=== PATIENT | female | born 1930 | race Caucasian/White ===

== ENCOUNTER 2017-02-12 10:25 | Inpatient (IN) | payer OTHER ==
[~2017-02-12] VITALS: Ht 160 cm; Wt 86.3 kg
[~2017-02-12 10:25] MED LIST: ARTHROTEC 751 TABLET; AZITHROMYCIN250 MG PO; Antivert PO; Arthrotec 75 PO; BESIVANCE 0.6% LEFT EYE; CEFTIN500 MG PO; CELEBREX200 MG PO; CIPRO XR 500 M500 M1 PO; CIPRO250 MG; COSOPT EYE DROPS5 ML LEFT EYE; COSOPT EYE DROPS5 ML RIGHT EYE; COSOPT PF EYE1 EACH RIGHT EYE; COZAAR50 MG PO; Combigan Ophth Soln RIGHT EYE; DICLOFENAC LEFT EYE; DULERA 100 MCG/13 GM IH; DUONEB 2.5-0.5 M3 ML AEROSOL; DUONEB3 ML IH; FERROUS SULFAT325 MG PO; FUROSEMIDE20 MG PO; GLUCOPHAGE500 MG PO; Glucophage PO; Glucosamine/Chondroi PO; HYDROCHLOROTHIA25 MG; HYDROCHLOROTHIA25 MG PO; Hydrodiuril,Oretic,E PO; IRON325 M1 PO; IRON325 MG PO; LASIX20 MG PO; LASIX40 MG PO; LEVOFLOXACIN750 MG PO; LIPITOR40 MG PO; LISINOPRIL5 MG PO; LOPRESSOR25 MG PO; MECLIZINE HCL25 M3 PO; METFORMIN HCL500 MG PO; OMEPRAZOLE20 MG PO; OMEPRAZOLE40 M1 PO; OSTEO BI-FLEX1 EAC1 PO; OSTEO BI-FLEX1 EAC2 PO; Omnicef PO; PREDNISONE10 MG PO; PREDNISONE20 MG PO; PRINIVIL5 MG PO; PROAIR HFA8.5 GM IH; Plavix PO; Pred Forte 1%,Omnipr LEFT EYE; PriLOSEC PO; Proventil,Ventolin H IH; SERTRALINE HCL100 MG PO; SIMVASTATIN80 MG; ST. JOSEPH ASPI81 MG PO; TRIAMCINOLONE A15 GM TP; Theragran-M,Centrum, PO; XALATAN2.5 ML LEFT EYE; ZOLOFT100 MG PO; Zestril,Prinivil PO; Zocor PO; Zoloft PO
[2017-02-12 10:47] LABS: EOSINOPHIL (%) 1.7 % (0-5); EOSINOPHIL COUNT 0.2 K/uL (0-0.3); HEMATOCRIT 27.8 % (36.0-46.0); IMMATURE GRANULOCYTE (%) 0.6 % (0.0-0.7); IMMATURE GRANULOCYTE COUNT 0.1 K/uL; INSTRUMENT ABS NEUTROPHIL CT 8.4 K/uL; LYMPHOCYTE COUNT 0.6 K/uL (1.0-2.8); MCH 27.3 PG (29.0-34.0); MCHC 29.1 G/DL (30.0-36.0); MCV 93.6 FL (83-99); MONOCYTE (%) 6.8 % (3-12); MONOCYTE COUNT 0.7 K/uL (0-0.8); NEUTROPHIL (%) 84.4 % (45-76); NEUTROPHIL COUNT 8.4 K/uL (1.8-6.4); RBC DIS.WIDTH-CV 15.8 % (11.8-14.6); RBC DIS.WIDTH-SD 53.7 % (39-53); RED BLOOD COUNT 2.97 M/uL (3.80-5.20)
[2017-02-12 10:56] LABS: AMYLASE 83 IU/L (1-118); CHLORIDE 109 mEq/L (99-109); POTASSIUM 4.9 mEq/L (3.7-5.4); SODIUM 143 mEq/L (136-147)
[2017-02-12 10:58] LABS: GLUCOSE 123 mg/dL (70-99)
[2017-02-12 10:59] LABS: ANION GAP 6 MEQ/L (2-14)
[2017-02-12 11:01] LABS: SERUM ETHYL ALCOHOL < 10 mg/dL
[2017-02-12 11:02] LABS: GFR ESTIMATE (CALCULATED) 50 mL/min/
[2017-02-12 11:03] LABS: UREA NITROGEN (BUN) 31 mg/dL (9-23)
[2017-02-12 11:05] LABS: LIPASE 71 U/L (1.0-51.0)
[2017-02-12 11:43] LABS: HEMATOLOGY COMMENT 1 SMEAR COMPATIBLE; PLAT.SUFFICIENCY DECREASED; PLATELET COUNT 104 K/uL (156-360)
[2017-02-12 11:52] LABS: TROP-I INTERPRETATION NEGATIVE; TROPONIN-I < 0.01 ng/mL (0.0-0.30)
[2017-02-12 12:16] LABS: INTER. NORMALIZED RATIO 1.1; PROTHROMBIN TIME 11.1 (9.2-11.2); PTT 21.5 (25-32)
[2017-02-12] MEDS ORDERED: LASIX40 MG PO (14:06)
[2017-02-12] MEDS ORDERED: DUONEB 2.5-0.5 M3 ML AEROSOL (14:10)
[2017-02-12] MEDS ORDERED: ADVAIR 100/501 DISK IH (14:10)
[2017-02-12 17:49] LABS: POINT-OF-CARE METER ID UU13113747
[2017-02-12 18:30] VITALS: BP 146/65
[2017-02-12 19:22] LABS: ADD MIUA? YES; BILIRUBIN NEGATIVE; BLOOD NEGATIVE; COLOR YELLOW ((YELLOW)); GLUCOSE (STRIP) NEGATIVE; KETONES NEGATIVE; LEUKOCYTES TRACE; NITRITE NEGATIVE; PROTEIN (STRIP) NEGATIVE; SPECIFIC GRAVITY 1.039 (1.000-1.030); UROBILINOGEN 0.2 MG/DL (0.2-1.0)
[2017-02-12 19:27] LABS: AMPHETAMINES QUANT VALUE 0 NG/ML; BARBITUATES QUANT VALUE 0 NG/ML; BENZODIAZEPINES QUANT VALUE 0 NG/ML; BENZODIAZEPINES, URINE SCREEN Negative (200 ng/mL); MARIJUANA QUANT VALUE 0 NG/ML; OPIATES QUANTITATIVE VALUE 0 NG/ML; PHENCYCLIDINE QUANT VALUE 0 NG/ML
[2017-02-12 19:30] LABS: BACTERIA NONE SEEN /HPF; EPITHELIAL CELLS RARE /HPF; MUCUS TRACE /LPF; RED BLOOD CELLS 0-5 /HPF (0-5); UCUL ADDED? NO
[2017-02-12 19:52] VITALS: BP 107/53
[2017-02-13] VITALS (15 sets, daily range): BP systolic 112–179; BP diastolic 51–73
[2017-02-13 07:37] LABS: ALKALINE PHOSPHATASE 78 IU/L (3-129); ANION GAP 5 MEQ/L (2-14); CHLORIDE 109 MEQ/L (99-109); GFR ESTIMATE (CALCULATED) 50 mL/min/; GLUCOSE 108 mg/dL (70-99); POTASSIUM 4.8 MEQ/L (3.7-5.4); SAMPLE HEMOLYSIS CHECK 0; SAMPLE ICTERIC CHECK 0; SAMPLE LIPEMIA CHECK 0; SODIUM 143 MEQ/L (136-147); TOTAL BILIRUBIN 0.3 MG/DL (0.0-1.0); UREA NITROGEN (BUN) 28 mg/dL (9-23)
[2017-02-13 07:41] LABS: HEMATOCRIT 21.7 % (36.0-46.0); MCH 27.9 PG (29.0-34.0); MCHC 29.5 G/DL (30.0-36.0); MCV 94.8 FL (83-99); RBC DIS.WIDTH-CV 15.6 % (11.8-14.6); RBC DIS.WIDTH-SD 53.7 % (39-53)
[2017-02-13 10:33] LABS: PLATELET COUNT 203 K/uL (156-360); RED BLOOD COUNT 2.29 M/uL (3.80-5.20)
[2017-02-13 11:17] LABS: POINT-OF-CARE METER ID UU14188577
[2017-02-13 17:27] LABS: POINT-OF-CARE METER ID UU14188577
[2017-02-13 21:37] LABS: POINT-OF-CARE METER ID UU14149397
[2017-02-14 04:57] VITALS: BP 137/62
[2017-02-14 06:33] LABS: POINT-OF-CARE METER ID UU14188577
[2017-02-14 06:45] LABS: HEMATOCRIT 27.4 % (36.0-46.0); MCH 28.5 PG (29.0-34.0); MCHC 31.4 G/DL (30.0-36.0); MEAN PLAT.VOLUME 9.7 uM^3 (9.5-12.4); PLATELET COUNT 176 K/uL (156-360); RBC DIS.WIDTH-CV 15.8 % (11.8-14.6); RBC DIS.WIDTH-SD 52.3 % (39-53)
[2017-02-14 06:49] LABS: MCV 90.7 FL (83-99); RED BLOOD COUNT 3.02 M/uL (3.80-5.20)
[2017-02-14 07:05] LABS: ANION GAP 6 MEQ/L (2-14); CHLORIDE 107 MEQ/L (99-109); GFR ESTIMATE (CALCULATED) 50 mL/min/; GLUCOSE 101 mg/dL (70-99); POTASSIUM 4.3 MEQ/L (3.7-5.4); SAMPLE HEMOLYSIS CHECK 0; SAMPLE ICTERIC CHECK 0; SAMPLE LIPEMIA CHECK 0; SODIUM 141 MEQ/L (136-147); UREA NITROGEN (BUN) 23 mg/dL (9-23)
[2017-02-14 08:00] VITALS: BP 137/69
[2017-02-14 10:40] VITALS: BP 140/60
[2017-02-14] MEDS ORDERED: FUROSEMIDE40 MG PO (11:26)
== END 2017-02-14 13:04 | disposition home or self-care (01) | DRG 812 ==
LOC: TRA 10:25 → 3EAST 16:55 → EDOF 16:55 → 3EAST 17:59
PROVIDERS: Emergency Medicine; Internal Medicine
PROC: 30233N1 Transfusion of Nonautologous Red Blood Cells into Peripheral Vein, Percutaneous Approach (ICD-10-PCS; principal; 2017-02-13)
DX: D62 Acute posthemorrhagic anemia (principal); S21.112A Laceration without foreign body of left front wall of thorax without penetration into thoracic cavity, initial encounter; J44.9 Chronic obstructive pulmonary disease, unspecified; Z99.81 Dependence on supplemental oxygen; I13.0 Hypertensive heart and chronic kidney disease with heart failure and stage 1 through stage 4 chronic kidney disease, or unspecified chronic kidney disease; I50.30 Unspecified diastolic (congestive) heart failure; N18.9 Chronic kidney disease, unspecified; E11.22 Type 2 diabetes mellitus with diabetic chronic kidney disease; I71.2 Thoracic aortic aneurysm, without rupture; I27.2 Other secondary pulmonary hypertension; S00.83XA Contusion of other part of head, initial encounter; R09.02 Hypoxemia; E78.5 Hyperlipidemia, unspecified; K21.0 Gastro-esophageal reflux disease with esophagitis; F32.9 Major depressive disorder, single episode, unspecified; H40.9 Unspecified glaucoma; R32 Unspecified urinary incontinence; W18.30XA Fall on same level, unspecified, initial encounter; W25.XXXA Contact with sharp glass, initial encounter; Z96.649 Presence of unspecified artificial hip joint; Z96.651 Presence of right artificial knee joint; Y92.000 Kitchen of unspecified non-institutional (private) residence as the place of occurrence of the external cause; Z88.0 Allergy status to penicillin; Z88.5 Allergy status to narcotic agent; Z79.84 Long term (current) use of oral hypoglycemic drugs; Z80.0 Family history of malignant neoplasm of digestive organs; E66.9 Obesity, unspecified; Z68.33 Body mass index [BMI] 33.0-33.9, adult
CPT/HCPCS: 70450; 71260; 80048; 80053; 80306 90; 81003; 82150; 82948; 83690; 84484; 85025; 85027; 85610; 85730; 86900; 86901; 86920; 93005; 94640; 94640 76; 94799; 99202; 99281; 99285; G0480; J1940; P9016

== ENCOUNTER 2017-12-09 14:06 | Inpatient (IN) | payer OTHER ==
[~2017-12-09] VITALS: Ht 160 cm; Wt 94.5 kg
[~2017-12-09 14:06] MED LIST changes: +ADVAIR 100/501 DISK IH; +FUROSEMIDE40 MG PO
[2017-12-09 14:52] LABS: HEMATOCRIT 36.4 % (36.0-46.0); HEMOGLOBIN 11.2 G/DL (11.9-15.5); MCH 28.7 PG (29.0-34.0); MCHC 30.8 G/DL (30.0-36.0); MCV 93.3 FL (83-99); PLATELET COUNT 225 K/uL (156-360); RBC DIS.WIDTH-CV 15.8 % (11.8-14.6); RBC DIS.WIDTH-SD 53.9 % (39-53); WHITE BLOOD COUNT 8.6 K/uL (4.1-10.2)
[2017-12-09 15:00] LABS: CHLORIDE 104 mEq/L (99-109); SODIUM 143 mEq/L (136-147)
[2017-12-09 15:01] LABS: GLUCOSE 161 mg/dL (70-99)
[2017-12-09 15:02] LABS: POTASSIUM 4.2 mEq/L (3.7-5.4)
[2017-12-09 15:05] LABS: CREATININE 1.5 mg/dL (0.6-1.3); GFR ESTIMATE (CALCULATED) 35 mL/min/
[2017-12-09 15:06] LABS: UREA NITROGEN (BUN) 38 mg/dL (9-23)
[2017-12-09 15:13] LABS: TROP-I INTERPRETATION NEGATIVE; TROPONIN-I 0.03 ng/mL (0.0-0.30)
[2017-12-09] MEDS ORDERED: FUROSEMIDE40 MG PO (19:35)
[2017-12-09] MEDS ORDERED: ANTIBIOTIC PO (19:36)
[2017-12-09] MEDS ORDERED: CYANOCOBALAM1000 MCG PO (19:37)
[2017-12-09] MEDS ORDERED: VITAMIN D31000 UNIT PO (19:37)
[2017-12-09 22:53] LABS: TROP-I INTERPRETATION NEGATIVE; TROPONIN-I 0.03 ng/mL (0.0-0.30)
[2017-12-09 23:10] VITALS: BP 150/65
[2017-12-10 04:14] VITALS: BP 141/77
[2017-12-10 06:11] LABS: CHLORIDE 102 MEQ/L (99-109); CREATININE 1.5 MG/DL (0.6-1.3); GFR ESTIMATE (CALCULATED) 35 mL/min/; POTASSIUM 4.4 MEQ/L (3.7-5.4); SODIUM 143 MEQ/L (136-147); UREA NITROGEN (BUN) 36 mg/dL (9-23)
[2017-12-10 06:13] LABS: TROP-I INTERPRETATION NEGATIVE; TROPONIN-I 0.03 ng/mL (0.0-0.30)
[2017-12-10 06:16] LABS: GLUCOSE 106 mg/dL (70-99)
[2017-12-10 08:13] VITALS: BP 132/63
[2017-12-10 10:58] VITALS: BP 139/71
[2017-12-10 16:04] VITALS: BP 104/55
[2017-12-10 19:38] VITALS: BP 135/67
[2017-12-10 23:54] VITALS: BP 152/78
[2017-12-11 03:52] VITALS: BP 149/64
[2017-12-11 06:18] LABS: HEMATOCRIT 33.5 % (36.0-46.0); HEMOGLOBIN 10.3 G/DL (11.9-15.5); MCH 28.7 PG (29.0-34.0); MCHC 30.7 G/DL (30.0-36.0); MCV 93.3 FL (83-99); PLATELET COUNT 194 K/uL (156-360); RBC DIS.WIDTH-CV 15.5 % (11.8-14.6); RBC DIS.WIDTH-SD 52.7 % (39-53); RED BLOOD COUNT 3.59 M/uL (3.80-5.20); WHITE BLOOD COUNT 7.4 K/uL (4.1-10.2)
[2017-12-11 06:29] LABS: CHLORIDE 104 MEQ/L (99-109); CREATININE 1.4 MG/DL (0.6-1.3); GFR ESTIMATE (CALCULATED) 38 mL/min/; GLUCOSE 89 mg/dL (70-99); POTASSIUM 4.1 MEQ/L (3.7-5.4); SODIUM 142 MEQ/L (136-147); UREA NITROGEN (BUN) 33 mg/dL (9-23)
[2017-12-11 07:44] VITALS: BP 117/58
[2017-12-11 11:06] VITALS: BP 119/80
[2017-12-11 15:32] VITALS: BP 137/64
[2017-12-11 19:31] VITALS: BP 136/62
[2017-12-12] VITALS (7 sets, daily range): BP systolic 111–150; BP diastolic 51–70
[2017-12-13 04:03] VITALS: BP 114/80
[2017-12-13 08:35] VITALS: BP 158/70
[2017-12-13 11:08] VITALS: BP 119/58
[2017-12-13 15:15] VITALS: BP 122/57
== END 2017-12-13 16:44 | disposition home or self-care (01) | DRG 291 ==
LOC: EME 14:06 → EDOF 21:19 → ENRESERV 21:23 → 5WEST 22:57
PROVIDERS: Internal Medicine; Physician Assistant
DX: I13.0 Hypertensive heart and chronic kidney disease with heart failure and stage 1 through stage 4 chronic kidney disease, or unspecified chronic kidney disease (principal); J44.9 Chronic obstructive pulmonary disease, unspecified; I50.33 Acute on chronic diastolic (congestive) heart failure; N39.0 Urinary tract infection, site not specified; H40.9 Unspecified glaucoma; Z96.643 Presence of artificial hip joint, bilateral; I27.20 Pulmonary hypertension, unspecified; I25.10 Atherosclerotic heart disease of native coronary artery without angina pectoris; E78.5 Hyperlipidemia, unspecified; K21.9 Gastro-esophageal reflux disease without esophagitis; L30.9 Dermatitis, unspecified; Z96.651 Presence of right artificial knee joint; F32.9 Major depressive disorder, single episode, unspecified; E11.51 Type 2 diabetes mellitus with diabetic peripheral angiopathy without gangrene; N18.3 Chronic kidney disease, stage 3 (moderate); I27.81 Cor pulmonale (chronic); E11.22 Type 2 diabetes mellitus with diabetic chronic kidney disease; Z99.81 Dependence on supplemental oxygen; Z79.899 Other long term (current) drug therapy; Z79.82 Long term (current) use of aspirin; Z87.01 Personal history of pneumonia (recurrent); Z80.0 Family history of malignant neoplasm of digestive organs; Z79.84 Long term (current) use of oral hypoglycemic drugs; Z82.5 Family history of asthma and other chronic lower respiratory diseases
CPT/HCPCS: 71046; 71275; 80048; 81003; 82948; 83880; 84484; 85027; 93005; 93306; 94640; 94640 76; 94799; 99202; 99281; 99285; G0378; J1644; J1815; J1940; J7030